=== PATIENT | male | born 1970 | race Caucasian/White ===

== ENCOUNTER → 2017-04-17 | Emergency (ER) | payer SELFPAY ==
[~2017-04-17] VITALS: Ht 180.3 cm; Wt 88.0 kg
[2017-04-17 02:56] VITALS: Ht 180.3 cm; Wt 88.0 kg
== END | disposition left against medical advice (07) ==
LOC: FTE 02:43
DX: Z53.21 Procedure and treatment not carried out due to patient leaving prior to being seen by health care provider (principal)

== ENCOUNTER 2018-01-02 03:20 | Emergency (ER) | END 2018-01-02 06:21 | disposition home or self-care (01) ==